=== PATIENT | female | born 1950 ===

== ENCOUNTER 2017-01-24 09:20 | Inpatient (IN) | payer MEDICARE, MEDICAID ==
[2017-01-24 09:21] VITALS: BMI 31.2
[2017-01-24 10:29] LABS: BASO # 0.1 K/uL (0.0-0.2); BASO % 1.2 % (0.0-2.0); EOS # 0.3 K/uL (0.0-0.7); EOS % 2.6 % (0.0-4.0); HEMATOCRIT 38.4 % (34.0-47.0); LYMPH % 28.9 % (20.0-40.0); MEAN CORPUSCULAR HGB CONC 32.3 g/dL (33.0-37.0); MEAN PLATELET VOLUME 9.4 fl (7.2-11.7); MONO # 0.9 K/uL (0.0-0.8); MONO % 8.2 % (0.0-10.0); NEUT # 6.1 K/uL (1.8-7.0); NEUT % 59.1 % (50.0-75.0); NRBC % 0.1 % (0.0-0.0); WHITE BLOOD COUNT 10.3 K/uL (4.8-10.8)
[2017-01-24 10:49] LABS: MEAN CELL VOLUME 86.6 fl (81.0-99.0)
[2017-01-24 10:55] LABS: ALB/GLOB RATIO 1.2 (1.0-2.1); BILIRUBIN,TOTAL 0.7 mg/dl (0.2-1.3); CALCIUM 9.2 mg/dL (8.4-10.2); TOTAL PROTEIN 7.7 G/DL (6.3-8.2)
[2017-01-24 10:56] LABS: POTASSIUM 5.8 MMOL/L (3.6-5.0)
--- NOTE | 2017-01-24 11:08 | ED PDOC ---
HPI: General Adult Time Seen by Provider: 01/24/17 09:25 Chief Complaint (Nursing): Abnormal Skin Integrity Chief Complaint (Provider): Left Upper Extremity Shunt bleed History Per: EMS History/Exam Limitations: no limitations (diplomatic interpreter/translator used: Yasmeen) Onset/Duration Of Symptoms: Hrs (prior to arrival ) Additional History Per: Patient Additional Complaint(s): Bethany Phililps is a 66 year old female with a past medical history of Afib , hypertension, diabetes, and end stage renal disease with a past surgical history of a graft placement brought to the ED via EMS for an evaluation of bleeding from her left upper extremity shunt occurring approximately 2 hours into her dialysis treatment today. EMS placed a clamp upon the shunt and transported the patient to the ER. The patient denies prior history of bleeding or pain to her distal arm. She also reports having a graft placed in 2008 with no complications since. The patients last dialysis was Tuesday. She denies chest pain, shortness of breath, fever, or swelling. PMD: Dr. Sparrow; Monique Burroughs MD Past Medical History Reviewed: Historical Data, Nursing Documentation, Vital Signs Vital Signs: Last Vital Signs Temp 96.8 F L 01/26/17 13:00 Pulse 51 L 01/26/17 13:00 Resp 18 01/26/17 13:00 BP 135/52 L 01/26/17 13:00 Pulse Ox 99 01/26/17 13:00 - Medical History PMH: Arthritis (KNEE L>R), Asthma, Atrial Fibrillation, COPD, Diabetes, Gastritis, HTN, Peripheral Edema, End Stage Renal Disease, Chronic Kidney Disease - Surgical History Other surgeries: graft placement - Family History Family History: States: Unknown Family Hx - Social History Current smoker - smoking cessation education provided: Yes Alcohol: None Drugs: Denies - Immunization History Hx Tetanus Toxoid Vaccination: No Hx Influenza Vaccination: No Hx Pneumococcal Vaccination: No - Home Medications Home Medications: Ambulatory Orders Medication Instructions Recorded Acetaminophen [Athenol] 650 mg PO Q6 PRN 01/25/17 Albuterol HFA [Ventolin HFA 90 2 puff IH Q8 PRN 01/25/17 mcg/actuation (8 g)] Ammonium Lactate 12% [Lac-Hydrin 1 ea EXT DAILY 01/25/17 12% Cream (140 g)] Clopidogrel [Plavix] 75 mg PO DAILY 01/25/17 Clotrimazole 1% Cream [Lotrimin 1% 1 ml DAILY 01/25/17 CREAM] Colesevelam HCl [Welchol] 625 mg PO DAILY 01/25/17 Fluticasone Nasal [Flonase] 1 spr NS DAILY 01/25/17 Gabapentin [Neurontin] 100 mg PO HS 01/25/17 Insulin Glargine,Hum.rec.anlog 9 units SQ HS 01/25/17 [Lantus Solostar] Linaclotide [Linzess] 145 mcg PO DAILY 01/25/17 Montelukast Sodium [Singulair] 10 mg PO DAILY 01/25/17 Oxycodone HCl/Acetaminophen 1 each PO Q6 01/25/17 [Endocet 5-325 Tablet] Pregabalin [Lyrica] 50 mg PO HS 01/25/17 Rosuvastatin Calcium [Crestor] 20 mg PO DAILY 01/25/17 Temazepam [Restoril] 30 mg PO HS 01/25/17 Trazodone HCl 100 mg PO HS 01/25/17 Methylprednisolone [Medrol Dose See Taper PO DAILY #21 mg 01/31/17 Pack (21 tabs)] Simethicone [Mylicon Chew Tab] 40 mg PO QID PRN #120 chew 01/31/17 - Allergies Allergies/Adverse Reactions: Allergies Allergy/AdvReac Type Severity Reaction Status Date / Time No Known Allergies Allergy Verified 01/10/17 20:00 Review of Systems ROS Statement: Except As Marked, All Systems Reviewed And Found Negative Physical Exam - Reviewed Nursing Documentation Reviewed: Yes Vital Signs Reviewed: Yes - Physical Exam Appears: Positive for: Non-toxic, No Acute Distress Head Exam: Positive for: ATRAUMATIC, NORMOCEPHALIC Skin: Positive for: Normal Color, Warm, Dry Eye Exam: Positive for: Normal appearance, EOMI, PERRL ENT: Positive for: Normal ENT Inspection Neck: Positive for: Normal, Supple Cardiovascular/Chest: Positive for: Regular Rate, Rhythm, Chest Non Tender. Negative for: Murmur Respiratory: Positive for: Normal Breath Sounds. Negative for: Respiratory Distress Gastrointestinal/Abdominal: Positive for: Normal Exam, Soft. Negative for: Tenderness Back: Positive for: Normal Inspection Extremity: Positive for: Other (Left upper extremity: AV shunt site is under pressure clamp. When removed focal area of ++pulsatile bleeding; palpable pulses distally) Neurologic/Psych: Positive for: Alert, Oriented - Laboratory Results Result Diagrams: 01/26/17 04:20 01/26/17 04:20 - ECG O2 Sat by Pulse Oximetry: 96 (RA) Pulse Ox Interpretation: Normal Medical Decision Making Medical Decision Making: Time: 09:25 Impression: AV shunt bleed in left upper extremity Plan: * ED Ekg * CMP * CBC (with differential) * Glucose, Blood, POC * Reevaluation Pressure bandage reapplied. Blood work to be obtained. Case discussed with Dr. Voss, recommends Venogram and admission. Will see patient. Hgb 12.4 Requires pressure bandage for hemostasis. Pt initially refused admission, via paraprofessional interpreter Beck Yasmeen discussed risks of possible from hemorrhage if leaves hospital prematurely , She agreed to stay. Admit medicine w vascular surgery consult. Scribe Attestation: Documented by Ana Cade, acting as a scribe for Gee Ac DO. Provider Scribe Attestation: All medical record entries made by the Scribe were at my direction and personally dictated by me. I have reviewed the chart and agree that the record accurately reflects my personal performance of the history, physical exam, medical decision making, and the department course for this patient. I have also personally directed, reviewed, and agree with the discharge instructions and disposition. Disposition - Clinical Impression Clinical Impression: Hemorrhage of arteriovenous fistula - Patient ED Disposition Is Patient to be Admitted: Yes Counseled Patient/Family Regarding: Studies Performed - Disposition Disposition Time: 10:30 Condition: FAIR - Pt Status Changed To: Hospital Disposition Of: Inpatient - Admit Certification Admit to Inpatient:: After my assessment, the patient will require hospitalization for at least two midnights. This is because of the severity of symptoms shown, intensity of services needed, and/or the medical risk in this patient being treated as an outpatient. - POA Present On Arrival: None
[2017-01-24] MEDS ORDERED: Lidocaine 1% Inj (20ml) ONE (12:27)
--- NOTE | 2017-01-24 13:07 | PCM.SURG1 ---
Surgeon's Initial Post Op Note - Surgeon's Notes Surgeon: Ellis Gaytan MD [employer] Former Supervisor: NONE Type of Anesthesia: Local Pre-Operative Diagnosis: ESRD, bleeding, anemia Operative Findings: Patent right brachial vein Post-Operative Diagnosis: ESRD, bleeding Operation Performed: Single lumen picc placement right brachial vein, 37 CM. Tip is in the SVC. Specimen/Specimens Removed: None Estimated Blood Loss: EBL {In ML}: 2 Blood Products Given: N/A Drains Used: No Drains Post-Op Condition: Fair Date of Surgery/Procedure: 01/24/17 Time of Surgery/Procedure: 13:05
--- NOTE | 2017-01-24 18:22 | CP.PCM.CON ---
History of Present Illness - History of Present Illness History of Present Illness: Vascular Consult Re: Bleeding AVF HPI: 66F was brought to the ED due to bleeding from her LUE AVF approximately 2- 3 hours into her HD treatment today. Pt has never had an issue with this much bleeding. She gets HD on MWF. EMS clamped the shunt came ER. Denies pain to forearm, but has some pain over her access site. Denies any other complaints at this time. Currently, her access site is not bleeding with a light dressing in place. PMH: HTN, DM, ESRD on HD, AFib PSH: AV SH: No current tobacco or EtOH. No drug use All: NKDA Meds: See JUN. Pt takes ASA, Plavix Review of Systems - Review of Systems All systems: reviewed and no additional remarkable complaints except (as per HPI ) Past Patient History - Infectious Disease Hx of Infectious Diseases: None - Past Medical History & Family History Past Medical History?: Yes - Past Social History Alcohol: None Drugs: Denies - CARDIAC Hx Cardiac Disorders: Yes - PULMONARY Hx Respiratory Disorders: Yes - NEUROLOGICAL Hx Neurological Disorder: No - HEENT Hx HEENT Problems: No - RENAL Hx Chronic Kidney Disease: Yes - ENDOCRINE/METABOLIC Hx Endocrine Disorders: Yes - HEMATOLOGICAL/ONCOLOGICAL Hx Blood Disorders: No - INTEGUMENTARY Hx Dermatological Problems: No - MUSCULOSKELETAL/RHEUMATOLOGICAL Hx Arthritis: Yes (KNEE L>R) - GASTROINTESTINAL Hx Gastritis: Yes - GENITOURINARY/GYNECOLOGICAL Hx Genitourinary Disorders: No - PSYCHIATRIC Hx Psychophysiologic Disorder: No Hx Substance Use: No - SURGICAL HISTORY Hx Surgeries: No Other/Comment: Left upper arm fistula - ANESTHESIA Hx Anesthesia: Yes Hx Anesthesia Reactions: No Meds Allergies/Adverse Reactions: Allergies Allergy/AdvReac Type Severity Reaction Status Date / Time No Known Allergies Allergy Verified 01/10/17 20:00 - Medications Medications: Current Medications Acetaminophen (Tylenol 325mg Tab) 650 mg PO Q6 PRN PRN Reason: Pain, moderate (4-7) Last Admin: 01/24/17 18:02 Dose: 650 mg Clonidine HCl (Catapres) 0.1 mg PO Q6H PRN PRN Reason: BP more than 150/90 Last Admin: 01/24/17 18:01 Dose: 0.1 mg Physical Exam - Constitutional Appears: Non-toxic, No Acute Distress - Head Exam Head Exam: ATRAUMATIC, NORMOCEPHALIC - Eye Exam Eye Exam: EOMI. absent: Scleral icterus - ENT Exam ENT Exam: Mucous Membranes Moist Additional comments: trachea midline - Respiratory Exam Respiratory Exam: NORMAL BREATHING PATTERN. absent: Respiratory Distress - Cardiovascular Exam Cardiovascular Exam: RRR, +S1, +S2 - GI/Abdominal Exam GI & Abdominal Exam: Soft. absent: Tenderness - Rectal Exam Rectal Exam: Deferred - Extremities Exam Extremities exam: Positive for: pedal edema (mild). Negative for: calf tenderness Additional comments: Palpable thrill over AVF. TTP at proximal puncture site No bleeding noted. Distal pulses palpable b/l. - Back Exam Back exam: absent: CVA tenderness (L), CVA tenderness (R) - Neurological Exam Neurological exam: Alert, Oriented x3 - Skin Skin Exam: Dry, Warm Results - Vital Signs Recent Vital Signs: Last Vital Signs Temp 98.8 F 01/24/17 16:49 Pulse 73 01/24/17 18:01 Resp 18 01/24/17 16:49 BP 184/77 H 01/24/17 18:01 Pulse Ox 99 01/24/17 16:49 - Labs Result Diagrams: 01/24/17 10:25 01/24/17 10:25 Labs: Laboratory Results - last 24 hr 01/24/17 01/24/17 10:25 10:25 WBC 10.3 RBC 4.43 Hgb 12.4 Hct 38.4 MCV 86.6 D MCH 28.0 MCHC 32.3 L RDW 17.0 H Plt Count 385 MPV 9.4 Neut % (Auto) 59.1 Lymph % (Auto) 28.9 [place] % (Auto) 8.2 Eos % (Auto) 2.6 Baso % (Auto) 1.2 Neut # 6.1 Lymph # 3.0 [place] # 0.9 H Eos # 0.3 Baso # 0.1 Sodium 140 Potassium 5.8 H Chloride 99 Carbon Dioxide 24 Anion Gap 23 H BUN 39 H Creatinine 8.4 H* Est GFR ( Amer) 6 Est GFR (Non-Af Amer) 5 Random Glucose 88 Calcium 9.2 Total Bilirubin 0.7 AST 39 H ALT 13 Alkaline Phosphatase 267 H Total Protein 7.7 Albumin 4.2 Globulin 3.5 Albumin/Globulin Ratio 1.2 Assessment & Plan - Assessment and Plan (Free Text) Assessment: 66F with bleeding from LUE AVF during dialysis Plan: Venogram ordered to look for stenoses Will follow up results Monitor for further bleeding No pressure dressings if not bleeding Further recs per Dr. Shanika López PGY4
--- NOTE | 2017-01-24 19:28 | CP.PCM.PN ---
Subjective - Date & Time of Evaluation Date of Evaluation: 01/24/17 Time of Evaluation: 15:00 - Subjective Subjective: REASONS FOR CONSULT : ESRD ON HD M W F ACUTE BLEEDING FROM AVF WHILE ON HD PT IS WELL KNOWN TO ME .. HAS BEEN MY HD PT FOR THE LAST 7 YEARS ALL EMR REVIEWED .. LABS REVIEWED .. PT WAS SEEN AND EXAMINED .. CASE D/W ER ATTENDING Bethany Phillips is a 66 year old female with a past medical history of Afib , hypertension, diabetes, and end stage renal disease with a past surgical history of a graft placement brought to the ED via EMS for an evaluation of bleeding from her left upper extremity shunt occurring approximately 2 hours into her dialysis treatment today. EMS placed a clamp upon the shunt and transported the patient to the ER. The patient denies prior history of bleeding or pain to her distal arm. She also reports having a graft placed in 2008 with no complications since. The patients last dialysis was Tuesday. She denies chest pain, shortness of breath, fever, or swelling. PMD: Dr. Sparrow; Monique Burroughs MD Past Medical History Reviewed: Historical Data, Nursing Documentation, Vital Signs Vital Signs: Last Vital Signs Temp 98.8 F 01/24/17 09:55 Pulse 67 01/24/17 09:55 Resp 18 01/24/17 09:55 BP 184/77 H 01/24/17 09:55 Pulse Ox 96 01/24/17 09:55 - Medical History PMH: Arthritis (KNEE L>R), Asthma, Atrial Fibrillation, COPD, Diabetes, Gastritis, HTN, Peripheral Edema, End Stage Renal Disease, Chronic Kidney Disease - Surgical History Objective - Vital Signs/Intake and Output Vital Signs (last 24 hours): Temp Pulse Resp BP Pulse Ox 98.8 F 73 18 184/77 H 99 01/24/17 16:49 01/24/17 18:01 01/24/17 16:49 01/24/17 18:01 01/24/17 16:49 - Medications Medications: Current Medications Acetaminophen (Tylenol 325mg Tab) 650 mg PO Q6 PRN PRN Reason: Pain, moderate (4-7) Last Admin: 01/24/17 18:02 Dose: 650 mg Clonidine HCl (Catapres) 0.1 mg PO Q6H PRN PRN Reason: BP more than 150/90 Last Admin: 01/24/17 18:01 Dose: 0.1 mg - Labs Labs: 01/24/17 10:25 01/24/17 10:25 Assessment and Plan - Assessment and Plan (Free Text) Assessment: ESRD ON HD M W F .. LAVS R NOT BAD .. K IS OK ANEMIA OF CKD .. H/H GOOD BLEEDING FROM AVF .. VASCULAT SURGERY TO SEE .. FISTULOGRAM IN AM MULTIPLE CO MORBIDITIES P : C/O CURRENT CARE C/O PRESENT MANAGEMENT VASCULAR SURGERY / ANGIOGRAM / PLASTY IN AM
[2017-01-25] MEDS ORDERED: Albuterol HFA 90 mcg/actuation (8 g) IH PRN (04:32)
[2017-01-25 05:26] LABS: HEMATOCRIT 30.2 % (34.0-47.0); MEAN CELL VOLUME 86.3 fl (81.0-99.0); MEAN CORPUSCULAR HEMOGLOBIN 27.8 pg (27.0-31.0); MEAN CORPUSCULAR HGB CONC 32.2 g/dL (33.0-37.0); WHITE BLOOD COUNT 9.7 K/uL (4.8-10.8)
[2017-01-25] MEDS: Oxycodone/Acetaminophen 5/325 mg Tab PO PRN ×2 (05:26→18:10)
[2017-01-25 05:30] LABS: CALCIUM 7.8 mg/dL (8.4-10.2); POTASSIUM 4.9 MMOL/L (3.6-5.0)
--- NOTE | 2017-01-25 06:57 | VASCULAR ---
PROCEDURE: Date of procedure: 01/24/2017 Procedure: 1. Placement of a right arm PICC with ultrasound and fluoroscopic guidance, CPT 78209 2. PICC tip confirmation with spot radiograph and is in the superior vena cava Medications: 1 percent lidocaine Total Fluoro time: 6.7 seconds Radiation: 0.96 MGy EBL: 2 cc HISTORY: Poor venous access TECHNIQUE: Following informed consent and procedure time-out, the patient was placed supine on the interventional table and the right arm prepped and draped in the usual sterile fashion. Ultrasound showed a patent and compressible right basilic vein. After the skin was anesthetized with lidocaine, the basilic vein was accessed with micro micropuncture technique using ultrasound guidance. A guidewire was then advanced under fluoroscopic guidance into the superior vena cava. An image documenting ultrasound guidance for vascular access was permanently saved. The length of the single-lumen 4 [place] PICC was trimmed to 37 centimeters and advanced through a peel-away sheath. The PICC was position with tip of PICC confirm a spot radiograph the superior vena cava. The PICC was secured to the patient's skin. The PICC was flushed. A biopatch and sterile dressing was applied. IMPRESSION: Placement of a single-lumen 4 [place] PICC trimmed to 37 centimeters via right basilic vein. The tip of the PICC is confirmed with spot radiograph and is in the superior vena cava.
--- NOTE | 2017-01-25 08:35 | CP.PCM.PN ---
Subjective - Date & Time of Evaluation Date of Evaluation: 01/25/17 Time of Evaluation: 06:40 - Subjective Subjective: Patient seen and examined this AM. SUSIE. Patient states that her fistula is no longer bleeding. Denies any pain, paralysis, or weakness. Objective - Vital Signs/Intake and Output Vital Signs (last 24 hours): Temp Pulse Resp BP Pulse Ox 98.5 F 70 18 207/73 H 97 01/25/17 08:09 01/25/17 08:09 01/25/17 08:09 01/25/17 08:09 01/25/17 08:09 - Medications Medications: Current Medications Acetaminophen (Tylenol 325mg Tab) 650 mg PO Q6 PRN PRN Reason: Pain, Mild (1-3) Albuterol (Ventolin Hfa 90 Mcg/Actuation (8 G)) 2 puff IH Q8 PRN PRN Reason: Shortness of Breath Atorvastatin Calcium (Lipitor) 40 mg PO DAILY [facility] Azithromycin (Zithromax) 250 mg PO DAILY [facility] PRN Reason: Protocol Clonidine HCl (Catapres) 0.1 mg PO Q6H PRN PRN Reason: BP more than 150/90 Last Admin: 01/24/17 21:13 Dose: 0.1 mg Clopidogrel Bisulfate (Plavix) 75 mg PO DAILY [facility] Clotrimazole (Lotrimin 1% Cream) 1 applic TOP DAILY [facility] Fluticasone Propionate (Flonase) 1 spr VINCENT DAILY [facility] Gabapentin (Neurontin) 100 mg PO HS [facility] Home Med (Colesevelam Hcl [Welchol]) 625 mg PO DAILY [facility] Home Med (Linaclotide [Linzess]) 145 mcg PO DAILY [facility] Insulin Detemir (Levemir) 9 units SC HS [facility] Lactic Acid (Lac-Hydrin 12% Cream (140 G)) 0 ea EXT DAILY [facility] Montelukast Sodium (Singulair) 10 mg PO DAILY [facility] Oxycodone/Acetaminophen (Percocet 5/325 Mg Tab) 1 tab PO Q6 PRN PRN Reason: Pain, moderate (4-7) Stop: 01/28/17 05:02 Last Admin: 01/25/17 05:26 Dose: 1 tab Pregabalin (Lyrica) 50 mg PO HS [facility] Temazepam (Restoril) 30 mg PO HS [facility] Trazodone HCl (Desyrel) 100 mg PO HS [facility] - Labs Labs: 01/25/17 04:30 01/25/17 04:30 - Constitutional Appears: Non-toxic, No Acute Distress - Head Exam Head Exam: ATRAUMATIC, NORMOCEPHALIC - Eye Exam Eye Exam: Normal appearance. absent: Conjunctival injection, Scleral icterus - ENT Exam ENT Exam: Mucous Membranes Moist, Normal Oropharynx - Respiratory Exam Respiratory Exam: NORMAL BREATHING PATTERN. absent: Accessory Muscle Use, Respiratory Distress - Cardiovascular Exam Cardiovascular Exam: RRR - GI/Abdominal Exam GI & Abdominal Exam: Soft. absent: Distended, Tenderness - Extremities Exam Extremities Exam: absent: Calf Tenderness, Pedal Edema, Tenderness - Neurological Exam Neurological Exam: Alert, Awake, Oriented x3 - Psychiatric Exam Psychiatric exam: Normal Affect, Normal Mood - Skin Skin Exam: Dry, Intact, Normal Color, Warm Assessment and Plan - Assessment and Plan (Free Text) Assessment: 66F with bleeding from LUE AVF during dialysis Plan: No surgical intervention planned at this time Follow up Venogram results Monitor for further bleeding No pressure dressings if not bleeding Discussed with Dr. Shanika Carmona, PGY2
[2017-01-25] MEDS: Ammonium Lactate 12% Cream (140 g) EXT SCH (08:49)
[2017-01-25] MEDS ORDERED: COLESEVELAM HCL 625 MG PO SCH (09:00)
[2017-01-25] MEDS ORDERED: Oxycodone/Acetaminophen 5/325 mg Tab PO SCH (10:00)
--- NOTE | 2017-01-25 12:34 | CP.PCM.HP ---
<Daniel Garcia - Last Filed: 01/25/17 12:51> History of Present Illness - History of Present Illness History of Present Illness: 66 YO F w/ Afib, htn, diabetes and ESRD. Patient was at her dialysis appointment on Tuesday, when she started bleeding from her dialysis site, EMS placed a clamp to the shunt and brought her into [facility] ER and patient was admitted. - Patient denies any fever, chills, nausea or vomiting. PMH: Arthritis, asthma, A Fib, COPD, ESRD PSH: Graft placement Present on Admission - Present on Admission Any Indicators Present on Admission: Yes History of Uncontrolled Diabetes: Yes Past Patient History - Infectious Disease Hx of Infectious Diseases: None - Past Medical History & Family History Past Medical History?: Yes - Past Social History Alcohol: None Drugs: Denies - CARDIAC Hx Cardiac Disorders: Yes - PULMONARY Hx Respiratory Disorders: Yes - NEUROLOGICAL Hx Neurological Disorder: No - HEENT Hx HEENT Problems: No - RENAL Hx Chronic Kidney Disease: Yes - ENDOCRINE/METABOLIC Hx Endocrine Disorders: Yes - HEMATOLOGICAL/ONCOLOGICAL Hx Blood Disorders: No - INTEGUMENTARY Hx Dermatological Problems: No - MUSCULOSKELETAL/RHEUMATOLOGICAL Hx Arthritis: Yes (KNEE L>R) - GASTROINTESTINAL Hx Gastritis: Yes - GENITOURINARY/GYNECOLOGICAL Hx Genitourinary Disorders: No - PSYCHIATRIC Hx Psychophysiologic Disorder: No Hx Substance Use: No - SURGICAL HISTORY Hx Surgeries: No Other/Comment: Left upper arm fistula - ANESTHESIA Hx Anesthesia: Yes Hx Anesthesia Reactions: No Meds Allergies/Adverse Reactions: Allergies Allergy/AdvReac Type Severity Reaction Status Date / Time No Known Allergies Allergy Verified 01/10/17 20:00 Physical Exam - Constitutional Appears: No Acute Distress - Head Exam Head Exam: NORMAL INSPECTION - Respiratory Exam Respiratory Exam: Clear to Auscultation Bilateral, NORMAL BREATHING PATTERN - Cardiovascular Exam Cardiovascular Exam: REGULAR RHYTHM, +S1, +S2 - GI/Abdominal Exam GI & Abdominal Exam: Normal Bowel Sounds, Soft. absent: Tenderness - Skin Additional comments: Pulsating aV fistula seen on the right arm. Does not apear to be bleeding Results - Vital Signs Recent Vital Signs: Last Vital Signs Temp 98.3 F 01/25/17 12:15 Pulse 64 01/25/17 12:15 Resp 18 01/25/17 12:15 BP 174/75 H 01/25/17 12:15 Pulse Ox 98 01/25/17 12:15 - Labs Result Diagrams: 01/25/17 04:30 01/25/17 04:30 Labs: Laboratory Results - last 24 hr 01/24/17 01/24/17 01/25/17 10:09 22:24 04:30 WBC 9.7 RBC 3.50 L Hgb 9.7 L D Hct 30.2 L MCV 86.3 MCH 27.8 MCHC 32.2 L RDW 17.0 H Plt Count 272 D Sodium Potassium Chloride Carbon Dioxide Anion Gap BUN Creatinine Est GFR ( Amer) Est GFR (Non-Af Amer) POC Glucose (mg/dL) 104 141 H Random Glucose Calcium 01/25/17 01/25/17 01/25/17 04:30 05:19 10:48 WBC RBC Hgb Hct MCV MCH MCHC RDW Plt Count Sodium 139 Potassium 4.9 Chloride 103 Carbon Dioxide 26 Anion Gap 16 BUN 44 H Creatinine 8.9 H* Est GFR ( Amer) 5 Est GFR (Non-Af Amer) 4 POC Glucose (mg/dL) 90 143 H Random Glucose 76 Calcium 7.8 L Assessment & Plan - Assessment and Plan (Free Text) Assessment: 1) Bleeding from Left upper extremity AVF ( Resolved) - Vasc surg consult appreciated - F/U with venogram results 2) Hyperlipidemia atorvastatin 3) ESRD nephro on board 4) DVT prophylaxis -SCD <Stanford Matamoros - Last Filed: 01/27/17 15:45> Results - Vital Signs Recent Vital Signs: Last Vital Signs Temp 96.8 F L 01/26/17 13:00 Pulse 51 L 01/26/17 13:00 Resp 18 01/26/17 13:00 BP 135/52 L 01/26/17 13:00 Pulse Ox 99 01/26/17 13:00 - Labs Result Diagrams: 01/26/17 04:20 01/26/17 04:20 Assessment & Plan - Assessment and Plan (Free Text) Assessment: Patient was personally seen and examined by me in rounds with residents. Available labs and diagnostic data reviewed. Case, Patients's condition and management plan discussed with residents in rounds. Agree with residents's progress note. Plan: As ordered.
--- NOTE | 2017-01-25 12:47 | CARD ---
APPROVED REPORT EKG Measurement Heart [id number] <Conclusion> Normal sinus rhythm Left anterior fascicular block Abnormal ECG
--- NOTE | 2017-01-25 15:28 | CON ---
REFERRING PHYSICIAN: Stanford Matamoros MD REASON FOR CONSULTATION: Bleeding, dialysis access. HISTORY OF PRESENT ILLNESS: Mrs. Phillips is a 66-year-old female patient with multiple medical problems including end-stage renal disease. She is on dialysis through left brachioaxillary AV graft. The patient was referred from dialysis center because bleeding post dialysis never stopped. The patient was seen in the ER and pressure applied for 20 minutes and the bleeding stopped. The patient was admitted for further investigation and treatments. I spoke to get her return and see her and when I was called, I asked the ER physician for pressure and if the bleeding stopped, she can be followed for venogram, but patient was admitted and was arranged for venogram with the IR. When I saw the patient, she was lying in bed, in no distress. She has no complaints. No history of similar attack. She explained that at this time it happened because of the change in the phlebotomy services technician during her dialysis. PAST MEDICAL HISTORY: Hypertension, diabetes, end-stage renal disease. PAST SURGICAL HISTORY: Operative intervention for AV fistula creation, AV graft and venogram and intervention before. SOCIAL HISTORY: She denied any tobacco or alcohol abuse. REVIEW OF SYSTEMS: CONSTITUTIONAL: No headache, no loss of weight, no blurring in vision. HEENT: No difficulty feeding or swallowing. CHEST: No shortness of breath. No cough. CARDIAC: No chest pain. No palpitations. ABDOMEN: Soft, lax. Nontender. No GI bleed, nausea, vomiting, or change in the bowel habits. EXTREMITIES: No cyanosis or edema. PHYSICAL EXAMINATION: GENERAL: She is awake, conscious. SKIN: No jaundice. No pallor. HEENT: Normocephalic. NECK: Supple. No masses. CHEST: Clear. CARDIAC: Sinus rhythm. ABDOMEN: Soft, lax, no tenderness, no rebound tenderness. EXTREMITIES: On the right side, there is PICC line in the right basilic vein, which, I do not agree with it because of the dialysis. The patient should not have PICC line and she should try to use the femoral line in case of emergency or IJ. Secondly, the fistula on left side, there is no active bleeding though there is a small scab wound at the site of bleeding. No other abnormality detected. Lower extremity, no abnormalities. ASSESSMENT AND PLAN: A 66-year-old with left brachiocephalic arteriovenous graft and had bleeding after dialysis that was stopped. The patient was admitted and Interventional Radiology was requested to do the venogram and I understand that the patient is scheduled with Interventional Radiology for venogram tomorrow. The patient needs to investigate the fistula and have to follow up there after discharge. Thank you for the consultation. Elsy Voss MD
[2017-01-25] MEDS: Bisacodyl 5mg EC Tab PO SCH (15:52)
--- NOTE | 2017-01-25 18:30 | CP.PCM.PN ---
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 : FOR ANGIOGRAM/PLAST BY IR IN AM HD IN AM THEN D/C Objective - Vital Signs/Intake and Output Vital Signs (last 24 hours): Temp Pulse Resp BP Pulse Ox 98.3 F 70 20 196/74 H 98 01/25/17 16:24 01/25/17 18:07 01/25/17 16:24 01/25/17 18:07 01/25/17 16:24 - Medications Medications: Current Medications Acetaminophen (Tylenol 325mg Tab) 650 mg PO Q6 PRN PRN Reason: Pain, Mild (1-3) Albuterol (Ventolin Hfa 90 Mcg/Actuation (8 G)) 2 puff IH Q8 PRN PRN Reason: Shortness of Breath Atorvastatin Calcium (Lipitor) 40 mg PO DAILY [facility] Last Admin: 01/25/17 08:52 Dose: 40 mg Azithromycin (Zithromax) 250 mg PO DAILY [facility] PRN Reason: Protocol Last Admin: 01/25/17 08:54 Dose: 250 mg Bisacodyl (Dulcolax) 5 mg PO DAILY [facility] Last Admin: 01/25/17 15:52 Dose: 5 mg Clonidine HCl (Catapres) 0.2 mg PO BID [facility] Last Admin: 01/25/17 18:06 Dose: 0.2 mg Clopidogrel Bisulfate (Plavix) 75 mg PO DAILY [facility] Last Admin: 01/25/17 08:53 Dose: 75 mg Clotrimazole (Lotrimin 1% Cream) 1 applic TOP DAILY [facility] Last Admin: 01/25/17 08:52 Dose: 1 applic Enalapril Maleate (Vasotec) 2.5 mg PO DAILY [facility] Last Admin: 01/25/17 15:53 Dose: 2.5 mg Fluticasone Propionate (Flonase) 1 spr VINCENT DAILY [facility] Last Admin: 01/25/17 08:47 Dose: 1 spr Gabapentin (Neurontin) 100 mg PO HS [facility] Insulin Detemir (Levemir) 9 units SC HS [facility] Lactic Acid (Lac-Hydrin 12% Cream (140 G)) 0 ea EXT DAILY [facility] Last Admin: 01/25/17 08:49 Dose: 1 applic Losartan Potassium (Cozaar) 50 mg PO DAILY [facility] Last Admin: 01/25/17 18:07 Dose: 50 mg Montelukast Sodium (Singulair) 10 mg PO DAILY [facility] Last Admin: 01/25/17 08:53 Dose: 10 mg Oxycodone/Acetaminophen (Percocet 5/325 Mg Tab) 1 tab PO Q6 PRN PRN Reason: Pain, moderate (4-7) Stop: 01/28/17 05:02 Last Admin: 01/25/17 18:10 Dose: 1 tab Pregabalin (Lyrica) 50 mg PO HS [facility] Temazepam (Restoril) 30 mg PO HS [facility] Trazodone HCl (Desyrel) 100 mg PO HS [facility] - Labs Labs: 01/25/17 04:30 01/25/17 04:30 Assessment and Plan - Assessment and Plan (Free Text) Assessment: ESRD ON HD M W F ANEMIA OF CKD .. H/H STABLE BLEEDING FROM AVF .. 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
[2017-01-25] MEDS ORDERED: TRAZODONE HCL 100 MG PO SCH (22:00)
[2017-01-25] MEDS ORDERED: Insulin Detemir 100 Units/ml Inj SC SCH (22:00)
[2017-01-25] MEDS ORDERED: INSULIN GLARGINE HUM REC ANLOG 9 UNIT SQ SCH (22:00)
[2017-01-26 05:38] LABS: CALCIUM 7.9 mg/dL (8.4-10.2); POTASSIUM 5.2 MMOL/L (3.6-5.0)
[2017-01-26 05:40] LABS: HEMATOCRIT 29.3 % (34.0-47.0); MEAN CORPUSCULAR HEMOGLOBIN 27.5 pg (27.0-31.0); RED CELL DISTRIBUTION WIDTH 16.3 % (11.5-14.5); WHITE BLOOD COUNT 8.4 K/uL (4.8-10.8)
[2017-01-26] MEDS ORDERED: Dextrose 50% SYRINGE Inj (50 ml) IVP ONE ×2 (06:18→10:38)
[2017-01-26] MEDS: Ammonium Lactate 12% Cream (140 g) EXT SCH (08:33)
[2017-01-26] MEDS: Bisacodyl 5mg EC Tab PO SCH (08:33)
--- NOTE | 2017-01-26 09:35 | CP.PCM.PN ---
Subjective - Date & Time of Evaluation Date of Evaluation: 01/26/17 Time of Evaluation: 07:10 - Subjective Subjective: Patient seen and examined this AM. AMAURYO. Patient denies any pain but reports muscles cramps in her hands. Objective - Vital Signs/Intake and Output Vital Signs (last 24 hours): Temp Pulse Resp BP Pulse Ox 98.0 F 55 L 18 128/67 96 01/26/17 08:00 01/26/17 08:31 01/26/17 08:00 01/26/17 08:31 01/26/17 08:00 Intake and Output: 01/26/17 01/26/17 06:59 18:59 Intake Total 860 Balance 860 - Medications Medications: Current Medications Acetaminophen (Tylenol 325mg Tab) 650 mg PO Q6 PRN PRN Reason: Pain, Mild (1-3) Last Admin: 01/25/17 21:41 Dose: 650 mg Albuterol (Ventolin Hfa 90 Mcg/Actuation (8 G)) 2 puff IH Q8 PRN PRN Reason: Shortness of Breath Atorvastatin Calcium (Lipitor) 40 mg PO DAILY [facility] Last Admin: 01/26/17 08:33 Dose: Not Given Azithromycin (Zithromax) 250 mg PO DAILY [facility] PRN Reason: Protocol Last Admin: 01/26/17 08:32 Dose: Not Given Bisacodyl (Dulcolax) 5 mg PO DAILY [facility] Last Admin: 01/26/17 08:33 Dose: Not Given Clonidine HCl (Catapres) 0.2 mg PO BID [facility] Last Admin: 01/26/17 08:29 Dose: Not Given Clopidogrel Bisulfate (Plavix) 75 mg PO DAILY [facility] Last Admin: 01/26/17 08:33 Dose: Not Given Clotrimazole (Lotrimin 1% Cream) 1 applic TOP DAILY [facility] Last Admin: 01/25/17 08:52 Dose: 1 applic Enalapril Maleate (Vasotec) 2.5 mg PO DAILY [facility] Last Admin: 01/26/17 08:32 Dose: Not Given Fluticasone Propionate (Flonase) 1 spr VINCENT DAILY [facility] Last Admin: 01/26/17 08:33 Dose: 1 spr Gabapentin (Neurontin) 100 mg PO HS [facility] Last Admin: 01/25/17 21:47 Dose: 100 mg Insulin Detemir (Levemir) 9 units SC [facility] Last Admin: 01/25/17 21:45 Dose: 9 units Lactic Acid (Lac-Hydrin 12% Cream (140 G)) 0 ea EXT DAILY [facility] Last Admin: 01/26/17 08:33 Dose: 1 applic Losartan Potassium (Cozaar) 50 mg PO DAILY [facility] Last Admin: 01/26/17 08:31 Dose: Not Given Montelukast Sodium (Singulair) 10 mg PO DAILY [facility] Last Admin: 01/26/17 08:32 Dose: Not Given Oxycodone/Acetaminophen (Percocet 5/325 Mg Tab) 1 tab PO Q6 PRN PRN Reason: Pain, moderate (4-7) Stop: 01/28/17 05:02 Last Admin: 01/25/17 18:10 Dose: 1 tab Pregabalin (Lyrica) 50 mg PO [facility] Last Admin: 01/25/17 21:52 Dose: 50 mg Temazepam (Restoril) 30 mg PO [facility] Last Admin: 01/25/17 21:56 Dose: 30 mg Trazodone HCl (Desyrel) 100 mg PO [facility] Last Admin: 01/25/17 21:45 Dose: 100 mg - Labs Labs: 01/26/17 04:20 01/26/17 04:20 - Constitutional Appears: Non-toxic, No Acute Distress - Head Exam Head Exam: ATRAUMATIC, NORMOCEPHALIC - Eye Exam Eye Exam: Normal appearance. absent: Conjunctival injection, Scleral icterus - ENT Exam ENT Exam: Mucous Membranes Moist, Normal Oropharynx - Respiratory Exam Respiratory Exam: NORMAL BREATHING PATTERN. absent: Accessory Muscle Use, Respiratory Distress - Cardiovascular Exam Cardiovascular Exam: RRR - GI/Abdominal Exam GI & Abdominal Exam: Soft. absent: Distended, Tenderness - Extremities Exam Additional comments: left upper extremity with AVF with palpable thrill and minor skin breakdown. Distal radial and ulnar arteries palpable - Neurological Exam Neurological Exam: Alert, Awake, Oriented x3 - Psychiatric Exam Psychiatric exam: Normal Affect, Normal Mood - Skin Skin Exam: Dry, Normal Color, Warm Assessment and Plan - Assessment and Plan (Free Text) Assessment: 66F with bleeding from LUE AVF during dialysis, no resolved Plan: No surgical intervention planned at this time--follow up IR recommendations Follow up fistulogram/possible fistuloplasty by IR today Monitor for further bleeding No pressure dressings if not bleeding Discussed with Dr. Shanika Carmona, PGY2
--- NOTE | 2017-01-26 10:02 | PQF GENQUE ---
This form is a permanent part of the medical record 01/26/17 Dr. Matamoros, Medication - Correlation for Diagnosis: Patient is on Zithromax . Would you please clarify if there is an associated diagnosis to go along with the use of this medication. Patient with a history of Asthma and COPD. Medications include Ventolin HFA, Flonase, Singulair, Zithromax. Clarification of your documentation is requested to better reflect the severity of illness and intensity of treatment of your patient. Indicators present [] Specify: [] [] Specify: [] [] Specify: [] [] Specify: [] Location in the medical record that reflects the above clinical findings: [] Treatment Provided: [] PHYSICIAN'S RESPONSE Based on your medical judgment of the clinical indicators outlined above please clarify the following: [] Practitioner response [] If unable to determine, please check the box, sign and date. Present On Admission (POA) Indicator: [] Present at the time of admission [] Not present at the time of admission [] Clinically Undetermined In responding to this query, please exercise your independent professional judgment. The fact that a question is asked does not imply that any particular answer is desired or expected. Thank you for your clarification on this documentation. If you have any questions please call:extension [phone] * Thank you, Blanca Curiel RN [facility]
--- NOTE | 2017-01-26 10:09 | PQF GENQUE ---
This form is a permanent part of the medical record 01/26/17 Dr. Matamoros, Please clarify type of asthma: Documentation of a history of Asthma and COPD. Medications include: Ventolin HFA , Singulair, Flonase, Zithromax. Clarification of your documentation is requested to better reflect the severity of illness and intensity of treatment of your patient. Indicators present [] Specify: [] [] Specify: [] [] Specify: [] [] Specify: [] Location in the medical record that reflects the above clinical findings: [] Treatment Provided: [] PHYSICIAN'S RESPONSE Please clarify type of asthma: [] Childhood [] Cough variant [] Exercise induced [] Late onset [] Mild intermittent [] Mild persistent [] Moderate persistent [] Severe persistent [] With bronchitis(please clarify acuity of bronchitis) [] With chronic lung disease (please document specific chronic lung disease ) [] Other (please specify) [] Clinically unable to determine [] Unknown Based on your medical judgment of the clinical indicators outlined above please clarify the following: [] Practitioner response [] If unable to determine, please check the box, sign and date. Present On Admission (POA) Indicator: [] Present at the time of admission [] Not present at the time of admission [] Clinically Undetermined In responding to this query, please exercise your independent professional judgment. The fact that a question is asked does not imply that any particular answer is desired or expected. Thank you for your clarification on this documentation. If you have any questions please call:extension [phone] * Thank you, Blanca Curiel RN [facility]
[2017-01-26] MEDS ORDERED: Dextrose 50% SYRINGE Inj (50 ml) ONE (10:13)
[2017-01-26] MEDS ORDERED: Iodixanol 320 MG/ML 100 ML BOTTLE IV ONE (10:17)
[2017-01-26] MEDS ORDERED: Midazolam 2 MG/2 ML VIAL ONE (11:10)
[2017-01-26] MEDS ORDERED: ceFAZolin 1 GM in Sodium Chloride 0.9% 100 ML IVPB STA (11:17)
[2017-01-26] MEDS ORDERED: Sodium Chloride 0.9% 250 ML IV ONE (12:00)
--- NOTE | 2017-01-26 12:02 | PCM.SURG1 ---
Surgeon's Initial Post Op Note - Surgeon's Notes Surgeon: Rikki Trimmer Operator: Herb Type of Anesthesia: IV Sedation, Local Pre-Operative Diagnosis: Bleeding left AV shunt. Operative Findings: Left axillary vein stenosis. Post-Operative Diagnosis: Left axillary vein stenosis. Operation Performed: Left AV shuntogram with axillary vein CUSTODIAL ENGINEER with 8 and 10mm balloon. Specimen/Specimens Removed: None Estimated Blood Loss: EBL {In ML}: 5 Date of Surgery/Procedure: 01/26/17 Time of Surgery/Procedure: 11:45
[2017-01-26 14:28] VITALS: BP 135/52; PULSE 51; RESP 18; TEMP 96.8
--- NOTE | 2017-01-26 15:55 | CP.PCM.PN ---
<Daniel Garcia - Last Filed: 01/26/17 16:05> Subjective - Date & Time of Evaluation Date of Evaluation: 01/26/17 Time of Evaluation: 08:00 - Subjective Subjective: Patient seen at bedside with Dr. Matamoros. Patient appears to be resting comfortably. No overnight events reported. Patient denies any bleeding from the AVF, will get dialized today and discharged home, if no complications or new events. Objective - Vital Signs/Intake and Output Vital Signs (last 24 hours): Temp Pulse Resp BP Pulse Ox 96.8 F L 51 L 18 135/52 L 99 01/26/17 13:00 01/26/17 13:00 01/26/17 13:00 01/26/17 13:00 01/26/17 13:00 Intake and Output: 01/26/17 01/26/17 06:59 18:59 Intake Total 860 0 Balance 860 0 - Medications Medications: Current Medications Acetaminophen (Tylenol 325mg Tab) 650 mg PO Q6 PRN PRN Reason: Pain, Mild (1-3) Last Admin: 01/25/17 21:41 Dose: 650 mg Albuterol (Ventolin Hfa 90 Mcg/Actuation (8 G)) 2 puff IH Q8 PRN PRN Reason: Shortness of Breath Atorvastatin Calcium (Lipitor) 40 mg PO DAILY [facility] Last Admin: 01/26/17 08:33 Dose: Not Given Azithromycin (Zithromax) 250 mg PO DAILY [facility] PRN Reason: Protocol Last Admin: 01/26/17 08:32 Dose: Not Given Bisacodyl (Dulcolax) 5 mg PO DAILY [facility] Last Admin: 01/26/17 08:33 Dose: Not Given Clonidine HCl (Catapres) 0.2 mg PO BID [facility] Last Admin: 01/26/17 09:53 Dose: 0.2 mg Clopidogrel Bisulfate (Plavix) 75 mg PO DAILY [facility] Last Admin: 01/26/17 08:33 Dose: Not Given Clotrimazole (Lotrimin 1% Cream) 1 applic TOP DAILY [facility] Last Admin: 01/25/17 08:52 Dose: 1 applic Fluticasone Propionate (Flonase) 1 spr VINCENT DAILY [facility] Last Admin: 01/26/17 08:33 Dose: 1 spr Gabapentin (Neurontin) 100 mg PO HS [facility] Last Admin: 01/25/17 21:47 Dose: 100 mg Insulin Detemir (Levemir) 9 units SC [facility] Last Admin: 01/25/17 21:45 Dose: 9 units Lactic Acid (Lac-Hydrin 12% Cream (140 G)) 0 ea EXT DAILY [facility] Last Admin: 01/26/17 08:33 Dose: 1 applic Losartan Potassium (Cozaar) 50 mg PO DAILY [facility] Last Admin: 01/26/17 09:53 Dose: 50 mg Montelukast Sodium (Singulair) 10 mg PO DAILY [facility] Last Admin: 01/26/17 08:32 Dose: Not Given Oxycodone/Acetaminophen (Percocet 5/325 Mg Tab) 1 tab PO Q6 PRN PRN Reason: Pain, moderate (4-7) Stop: 01/28/17 05:02 Last Admin: 01/25/17 18:10 Dose: 1 tab Pregabalin (Lyrica) 50 mg PO [facility] Last Admin: 01/25/17 21:52 Dose: 50 mg Temazepam (Restoril) 30 mg PO [facility] Last Admin: 01/25/17 21:56 Dose: 30 mg Trazodone HCl (Desyrel) 100 mg PO [facility] Last Admin: 01/25/17 21:45 Dose: 100 mg - Labs Labs: 01/26/17 04:20 01/26/17 04:20 - Constitutional Appears: No Acute Distress - Head Exam Head Exam: NORMAL INSPECTION - Eye Exam Eye Exam: Normal appearance - Respiratory Exam Respiratory Exam: Clear to Ausculation Bilateral, Wheezes, NORMAL BREATHING PATTERN. absent: Rhonchi - Cardiovascular Exam Cardiovascular Exam: REGULAR RHYTHM, +S1, +S2 - GI/Abdominal Exam GI & Abdominal Exam: Soft, Normal Bowel Sounds - Extremities Exam Additional comments: Left upper extremity: AVF noted, pulsitile. No blood or discharge noted - Neurological Exam Neurological Exam: Alert, Awake, Oriented x3 - Skin Skin Exam: Normal Color, Warm Assessment and Plan - Assessment and Plan (Free Text) Assessment: 1) Bleeding from Left upper extremity AVF - This morning no bleeding from site was noted. Plan was to have patient undergo dialysis and send home. -12:00 pm , do to AV site bleeding: Left AV shuntogram with axilary vein MET[employer]ER BLASTING with 8 and 10 mm balloon 2) Hyperlipidemia atorvastatin 3) ESRD nephro on board 4)COPD - Albuterol HFA - Azithromycin: 250 mg - Fluticasone - Monteleukast 4) DVT prophylaxis -SCD <Stanford Matamoros - Last Filed: 01/27/17 15:48> Objective - Vital Signs/Intake and Output Vital Signs (last 24 hours): Temp Pulse Resp BP Pulse Ox 96.8 F L 51 L 18 135/52 L 99 01/26/17 13:00 01/26/17 13:00 01/26/17 13:00 01/26/17 13:00 01/26/17 13:00 - Labs Labs: 01/26/17 04:20 01/26/17 04:20 Assessment and Plan - Assessment and Plan (Free Text) Assessment: Patient was personally seen and examined by me in rounds with residents. Available labs and diagnostic data reviewed. Case, Patients's condition and management plan discussed with residents in rounds. Agree with residents's progress note. Plan: As ordered.
--- NOTE | 2017-01-26 23:19 | CP.PCM.PN ---
Subjective - Date & Time of Evaluation Date of Evaluation: 01/26/17 Time of Evaluation: 11:30 - Subjective Subjective: SEEN ON RENAL F/U SEEN AT IR .. D/W DR BARRIGA S/P L FISTULOGRAM / PLASTY FOR HS AFTER AND THEN D/C ALL PREVIOUS EMR REVIEWED Objective - Vital Signs/Intake and Output Vital Signs (last 24 hours): Temp Pulse Resp BP Pulse Ox 96.8 F L 51 L 18 135/52 L 99 01/26/17 13:00 01/26/17 13:00 01/26/17 13:00 01/26/17 13:00 01/26/17 13:00 Intake and Output: 01/26/17 01/27/17 18:59 06:59 Intake Total 0 Balance 0 - Labs Labs: 01/26/17 04:20 01/26/17 04:20
--- NOTE | 2017-02-02 14:04 | VASCULAR ---
PROCEDURE: Date of procedure: 01/26/2017 1. left upper extremity AV fistulagram 2. Percutaneous balloon angioplasty outflow vein, moderate 30 percent stenosis. Medication: Patient sedated by anesthesiologist along with physiologic monitoring, 3 cubic centimeters lidocaine 1 percent. EBL: 5 cc Contrast: 40 ml Visipaque Radiation: 23.29 mGy Fluoro time: 93.4 seconds HISTORY: Left arm AV graft with prolonged bleeding at dialysis. PHYSICIAN(S): Yossi Brandt MD TECHNIQUE: Detailed history and physical was performed prior the case. The procedure was performed by Dr. Brandt. Images are presented for dictation. The relative risks and indications of the procedure were explained to the patient and informed consent obtained. The patient was placed supine on the angiography table and the left arm was prepped and draped in usual sterile fashion. The patient was sedated by the anesthesiologist and monitoring provided throughout the procedure by a nurse. The left arm AV graft was punctured near the elbow in an antegrade direction with a micropuncture set. A 5 Faroese catheter was placed. An overlapping left upper extremity AV fistula angiogram was performed. Central venous imaging was obtained. A reflux fistulogram was performed to evaluate arterial anastomosis. The catheter was removed and hemostasis obtained. FINDINGS: Left arm AV graft fistulogram showed moderate outflow vein stenosis near the arch anastomosis. Remainder the outflow veins unremarkable. . Central venogram is normal. Arterial anastamosis is normal. The 5 Faroese dilator was exchanged over a guidewire for a 6 Faroese vascular sheath. Through the sheath, 7 mm followed percutaneous balloon angioplasty is performed across the stenotic outflow vein vein segment. A visible waist is present. Following prolonged balloon angioplasty a repeat fistula angiogram was performed. There was near resolution of the stenosis. IMPRESSION: Left upper extremity AV fistula angiogram showed moderate outflow vein stenosis treated with a 7 mm balloon angioplasty. Normal arterial anastamosis. Normal central venogram. A great thrill is present at completion of case.
[2017-02-02 18:08] VITALS: O2SAT 96
== END 2017-01-26 16:00 | disposition left against medical advice (07) | DRG 252 ==
LOC: H.ER 09:20 → H.ERHOLD 11:19 → H.TEL 13:40 → OBSVTOIN 01-25 14:01 → H.TEL 01-26 11:17
PROVIDERS: ADMIT Internal Medicine; ATTEND Internal Medicine
PROC: 02HV33Z Insertion of Infusion Device into Superior Vena Cava, Percutaneous Approach (ICD-10-PCS; 2017-01-24)
PROC: B518ZZA Fluoroscopy of Superior Vena Cava, Guidance (ICD-10-PCS; 2017-01-24)
PROC: B548ZZA Ultrasonography of Superior Vena Cava, Guidance (ICD-10-PCS; 2017-01-24)
PROC: B51NYZZ Fluoroscopy of Left Upper Extremity Veins using Other Contrast (ICD-10-PCS; 2017-01-26)
PROC: 057Y3DZ Dilation of Upper Vein with Intraluminal Device, Percutaneous Approach (ICD-10-PCS; principal; 2017-01-26 10:00)
DX: T82.838A Hemorrhage due to vascular prosthetic devices, implants and grafts, initial encounter (principal); N18.6 End stage renal disease; I12.0 Hypertensive chronic kidney disease with stage 5 chronic kidney disease or end stage renal disease; E11.22 Type 2 diabetes mellitus with diabetic chronic kidney disease; I87.1 Compression of vein; Z99.2 Dependence on renal dialysis; D63.1 Anemia in chronic kidney disease; E78.5 Hyperlipidemia, unspecified; I48.91 Unspecified atrial fibrillation; M17.0 Bilateral primary osteoarthritis of knee; J44.9 Chronic obstructive pulmonary disease, unspecified; K29.70 Gastritis, unspecified, without bleeding; Y83.2 Surgical operation with anastomosis, bypass or graft as the cause of abnormal reaction of the patient, or of later complication, without mention of misadventure at the time of the procedure; F17.200 Nicotine dependence, unspecified, uncomplicated; Z79.02 Long term (current) use of antithrombotics/antiplatelets; Z79.82 Long term (current) use of aspirin; Y92.89 Other specified places as the place of occurrence of the external cause